=== PATIENT | male | born 1960 | race Caucasian/White ===

== ENCOUNTER 2018-09-13 05:55 | Emergency (ER) | payer OTHER ==
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
[2018-09-13 06:31] VITALS: BP 172/82
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
[2018-09-13] MEDS ORDERED: TRAM-420 PO (07:33)
== END 2018-09-13 07:47 | disposition home or self-care (01) ==
LOC: ER 06:05
DX: S40.011A Contusion of right shoulder, initial encounter (principal); V48.9XXA Unspecified car occupant injured in noncollision transport accident in traffic accident, initial encounter
CPT/HCPCS: 71045; 73000; 99284; A4565

== ENCOUNTER → 2018-09-13 | Outpatient (CLI) | payer OTHER ==
[~2018-09-13] MED LIST: TRAM-420 PO
== END ==
LOC: AMB 05:16
PROVIDERS: ATTEND Nurse Practitioner
DX: R07.9 Chest pain, unspecified (principal)
CPT/HCPCS: A0425; A0429